=== PATIENT | female | born 1975 | race American Indian/Alaskan Native ===

== ENCOUNTER 2017-05-14 19:55 | Emergency (ER) | payer MEDICARE ==
[2017-05-14] MEDS ORDERED: MOTRIN PO ONE (20:05)
--- NOTE | 2017-05-14 22:14 | XRay Report ---
FINAL REPORT PROCEDURE: XR KNEE 3V LT TECHNIQUE: LEFT knee radiographs, AP, cross-table lateral and oblique views. CPT 44815 HISTORY: fall; SWELLING TO LEFT KNEE COMPARISON: No prior studies are available for comparison. FINDINGS: Fracture (s) and/or Dislocation(s): None . Alignment: Normal . Joint space(s): Mild degree osteophyte formation is noted involving patellofemoral compartment. Soft tissues: Normal . Bone mineralization: Normal . Foreign bodies: None . IMPRESSION: Mild degree osteoarthritis.
[2017-05-15] MEDS ORDERED: ULTRAM PO ONE (01:44)
[2017-05-15] MEDS ORDERED: ULTRAM ONE (01:45)
[2017-05-15 02:54] VITALS: BP 112/62
[2017-05-15] MEDS ORDERED: MORPHINE IM ONE (03:03)
[2017-05-15] MEDS ORDERED: ZOFRAN IM ONE (03:05)
--- NOTE | 2017-05-15 03:06 | Emergency Department Report ---
ED Lower Extremity HPI - General Chief Complaint: Fall Stated Complaint: LEFT KNEE PX Time Seen by Provider: 05/15/17 02:57 Source: patient Mode of arrival: Wheelchair Limitations: No Limitations - History of Present Illness Initial Comments: 41-year-old female presents here with complaints of pain left knee and left lower leg. . History of a fall just prior to arrival. Has history of RSD left leg and foot. She is visiting from [place] Complaint: knee injury (left knee) -: Sudden (just prior to arrival) Injury: Leg: Left (blunt trauma), Knee: Left (blunt trauma) Type of Injury: blunt Place: home Severity: moderate Improves With: nothing Worsens With: weight bearing, movement, palpation Context: fall Associated Symptoms: swelling, numbness, tingling, able to partially bear weight - Related Data Previous Rx's Medication Instructions Recorded Last Taken Type Methocarbamol [Robaxin-750] 1,500 mg PO TID #30 tablet 05/15/17 Unknown Rx traMADol [Ultram] 50 mg PO Q6HR PRN #20 tablet 05/15/17 Unknown Rx Allergies Allergy/AdvReac Type Severity Reaction Status Date / Time Penicillins Allergy Hives Verified 05/14/17 20:09 ED Review of Systems ROS: Stated complaint: LEFT KNEE PX Other details as noted in HPI Comment: All other systems reviewed and negative Constitutional: denies: diaphoresis, fever, malaise, weakness Eyes: denies: eye pain, eye discharge, vision change ENT: denies: ear pain, dental pain, hearing loss Respiratory: denies: no symptoms reported, cough, orthopnea, SOB with exertion, SOB at rest Cardiovascular: denies: chest pain, palpitations, dyspnea on exertion, edema Endocrine: no symptoms reported Gastrointestinal: denies: abdominal pain, nausea, vomiting, diarrhea, constipation Genitourinary: denies: urgency, dysuria, frequency, hematuria Musculoskeletal: joint swelling (left knee), arthralgia Skin: denies: lesions, change in color, change in hair/nails, pruritus Neurological: denies: headache, numbness, paresthesias, confusion ED Past Medical Hx - Past Medical History Previous Medical History?: Yes Additional medical history: "RSD of L. leg" - Surgical History Past Surgical History?: Yes Additional Surgical History: L. knee surgery "ligament repair" - Social History Smoking Status: Never Smoker - Medications Home Medications: Home Medications Medication Instructions Recorded Confirmed Last Taken Type Methocarbamol [Robaxin-750] 1,500 mg PO TID #30 tablet 05/15/17 Unknown Rx traMADol [Ultram] 50 mg PO Q6HR PRN #20 tablet 05/15/17 Unknown Rx ED Physical Exam - General Limitations: No Limitations General appearance: in distress ([id number]) - Head Head exam: Present: atraumatic, normocephalic, normal inspection - Eye Eye exam: Present: normal appearance, PERRL, EOMI. Absent: scleral icterus, conjunctival injection - ENT ENT exam: Present: normal exam, normal orophraynx, mucous membranes moist - Neck Neck exam: Present: normal inspection, full ROM. Absent: tenderness, lymphadenopathy - Respiratory Respiratory exam: Present: normal lung sounds bilaterally. Absent: respiratory distress, wheezes, rales, rhonchi, stridor, chest wall tenderness, accessory muscle use, decreased breath sounds, prolonged expiratory - Cardiovascular Cardiovascular Exam: Present: regular rate, normal rhythm, normal heart sounds. Absent: bradycardia, tachycardia, diastolic murmur, rubs - GI/Abdominal GI/Abdominal exam: Present: soft, distended (obese abdomen), normal bowel sounds. Absent: tenderness, guarding, rebound, hyperactive bowel sounds, hypoactive bowel sounds, organomegaly, mass, bruit, pulsatile mass - Rectal Rectal exam: Present: deferred - Expanded Lower Extremity Exam Left Hip exam: Present: normal inspection, full ROM. Absent: tenderness, swelling, laceration, ecchymosis, deformity Upper Leg exam: Present: normal inspection, full ROM. Absent: tenderness, abrasion, laceration, ecchymosis Knee exam: Present: tenderness, swelling, pain/laxity with valgus, pain/laxity with varus. Absent: abrasion, laceration, ecchymosis, dislocation, erythema, effusion, pain w/ pronation/supination, posterior draw sign Lower Leg exam: Present: tenderness, swelling. Absent: laceration, ecchymosis, deformity, crepidus, dislocation, erythema Ankle exam: Present: tenderness, swelling. Absent: abrasion, laceration, ecchymosis Foot/Toe exam: Present: tenderness, swelling. Absent: normal inspection, full ROM, abrasion, laceration, ecchymosis, dislocation, erythema, amputation, foreign body, calcaneal tenderness Neuro vascular tendon exam: Present: no vascular compromise. Absent: pulse deficit, abnormal cap refill, motor deficit, sensory deficit, tendon deficit Gait: Positive: not tested/not observed - Back Exam Back exam: Present: normal inspection, full ROM. Absent: tenderness, CVA tenderness (L) - Neurological Exam Neurological exam: Present: alert, oriented X3, CN II-XII intact, motor sensory deficit ED Course Vital Signs 05/14/17 05/15/17 20:05 02:52 Temperature 99.2 F 98.8 F Pulse Rate 100 H 104 H Respiratory 18 18 Rate Blood Pressure 130/73 Blood Pressure 112/62 [Right] O2 Sat by Pulse 100 99 Oximetry Critical Care Time: No Critical care attestation.: If time is entered above; I have spent that time in minutes in the direct care of this critically ill patient, excluding procedure time. ED Disposition Clinical Impression: Contusion of left knee, Arthritis of left knee Disposition: DC- TO HOME OR SELFCARE Is pt being admited?: No Does the pt Need Aspirin: No Condition: Stable Instructions: Osteoarthritis (ED), Knee Pain (ED) Additional Instructions: Use your knee immobilizer and crutches. Do not bear weight on your left knee until pain free. Follow up with your doctor when you gets back to [place] Prescriptions: Methocarbamol [Robaxin-750] 1,500 mg PO TID #30 tablet traMADol [Ultram] 50 mg PO Q6HR PRN #20 tablet PRN Reason: Pain Referrals: PRIMARY CARE, [Primary Care Provider] - 3-5 Days Time of Disposition: 04:14
== END 2017-05-15 04:34 | disposition home or self-care (01) ==
LOC: EDBD → ED 19:55
DX: S80.02XA Contusion of left knee, initial encounter (principal); Z88.0 Allergy status to penicillin; W17.89XA Other fall from one level to another, initial encounter; Y93.89 Activity, other specified; Y92.89 Other specified places as the place of occurrence of the external cause; Y99.8 Other external cause status
CPT/HCPCS: 29505; 73562; 96372; 99284; J2270; J2405